=== PATIENT | female | born 1935 | race Caucasian/White ===

== ENCOUNTER 2020-12-11 21:07 | Observation (INO) | payer MEDICARE ==
[~2020-12-11] VITALS: Ht 154.9 cm; Wt 62.1 kg
[2020-12-11 21:29] LABS: URINE BLOOD NEGATIVE (Negative); URINE CLARITY CLEAR; URINE COLOR YELLOW; URINE GLUCOSE-RANDOM 2+ (Negative); URINE KETONES TRACE (Negative); URINE LEUKOCYTES-REFLEX NEGATIVE (Negative); URINE NITRITE-REFLEX NEGATIVE (Negative); URINE PROTEIN NEGATIVE (Negative); URINE SPECIFIC GRAVITY 1.015 (1.005-1.030); URINE UROBILINOGEN 0.2 E.U./dl (0.2-1.0)
[2020-12-11] MEDS ORDERED: LANTUS100 UNIT/M SUBQ (21:29)
[2020-12-11 21:30] LABS: URINE BILIRUBIN 1+ (Negative)
[2020-12-11 21:31] LABS: ICTOTEST (BILI CONFIRMATORY) Negative (Negative)
[2020-12-11 21:44] LABS: ABSOLUTE BASOPHILS 0.1 thou/uL (0.0-0.2); ABSOLUTE EOSINOPHILS 0.1 thou/uL (0.0-0.7); ABSOLUTE LYMPHOCYTES 0.9 thou/uL (0.8-5.3); ABSOLUTE MONOCYTES 0.5 thou/uL (0.0-1.2); ABSOLUTE NEUTROPHILS 6.3 thou/uL (1.6-8.1); BASOPHILS 1.5 %; EOSINOPHILS 1.5 %; HEMATOCRIT 40.4 % (37.0-47.0); HEMOGLOBIN 13.8 gm/dL (12.0-15.0); LYMPHOCYTES 11.1 %; MCH 30.5 pg (26.0-34.0); MCHC 34.3 g/dL (28.0-37.0); MCV 89.1 fL (80.0-100.0); MONOCYTES 5.8 %; MPV 7.2 fl. (7.2-11.1); NUCLEATED RBCS 0 /100WBC; PLATELET COUNT* 173 thou/uL (150-400); POLYS 80.1 %; RBC 4.54 mil/uL (4.20-5.00); RDW-CV 14.2 % (10.5-14.5); WBC 7.8 thou/uL (4.0-11.0)
[2020-12-11 21:55] LABS: CALCIUM 9.1 mg/dL (8.5-10.1); CREATININE 0.9 mg/dL (0.6-1.3); POTASSIUM 3.3 mmol/L (3.5-5.1)
[2020-12-11 22:05] LABS: ALBUMIN 4.2 g/dL (3.4-5.0); MAGNESIUM 1.7 mg/dL (1.8-2.4); TOTAL BILIRUBIN 0.7 mg/dL (<0.1-1.0); TOTAL PROTEIN 7.5 g/dL (6.4-8.2)
[2020-12-12 02:14] VITALS: BP 125/66
[2020-12-12 02:24] VITALS: BP 153/56
--- NOTE | 2020-12-12 02:24 | NUR ---
PT ADMITTED TO FLOOR PER WHEELCHAIR ACCOMPANIED BY ER STAFF WITH BELONGINGS. PT WALKS FROM CHAIR TO BED WITH SBA. DENIES DIZZINESS OR PAIN. STATES SHE JUST FEELS "WEAK" DENIES NAUSEA. LAC IVF PLACED ON PUMP FOR INFUSION. HISTORY OBTAINED AND ASSESSMENT PERFORMED, SEE ADMIT NOTES. TELE MONITOR ON. CALL LITE IN EASY REACH, BED ALARM ON FOR SAFETY.
[2020-12-12 04:00] VITALS: BP 133/55
[2020-12-12] MEDS ORDERED: ARICEPT10 M1 PO ×2 (04:27→04:28)
[2020-12-12] MEDS ORDERED: FAMOTIDINE 20 M20 MG PO (04:29)
[2020-12-12] MEDS ORDERED: PROTONIX40 M2 PO (04:30)
[2020-12-12] MEDS ORDERED: LEVOTHYROXINE25 MC1 PO (04:30)
[2020-12-12] MEDS ORDERED: MELOXICAM15 MG PO (04:31)
[2020-12-12] MEDS ORDERED: ETODOLAC 400 M400 M1 PO (04:32)
[2020-12-12] MEDS ORDERED: ASA81BEC PO (04:33)
[2020-12-12] MEDS ORDERED: MAGNESIUM500 MG PO (04:33)
[2020-12-12] MEDS ORDERED: MIRALAX119 GM PO (04:34)
[2020-12-12] MEDS ORDERED: TYLENOL325 M1 PO (04:35)
--- NOTE | 2020-12-12 05:39 | NUR ---
PT HAS SLEPT WITHOUT COMPLAINTS SINCE SETTLING IN AFTER ADMISSION. LAC IVF INFUSING PER PUMP. CALL LITE IN EASY REACH, BED ALARM ON FOR SAFETY. TELE SR.
[2020-12-12 08:00] VITALS: BP 136/77
--- NOTE | 2020-12-12 11:31 | NUR ---
DR. MATHEWS HERE TO SEE PATIENT AND TALK WITH DAUGHTER. HE WANTS PT TO SEE PATIENT AND SEE HOW SHE DOES. I WILL CALL AND REPORT TO HOW PATIENT DID WITH AMBULATING.
--- NOTE | 2020-12-12 11:52 | EKG ---
[place] [address] ELECTROCARDIOGRAM REPORT Name: LYNDSEY BOND Room: [address]#: [id number] Admission: 12/12/20 Attend Phys: Allan Ceja, Discharge: Date of : 39 Date of Service: 12/11/202117 Report #: [id number] THIS REPORT FOR: //name// [facility] ED Test Date: 2020-12-11 Test Time: 21:18:02 Pat Name: LYNDSEY BOND Department: Room: [facility] Gender: F Lightout Examiner: : 1935 Requested By: Mana Davis Order Number: [id number] MD: Efren Mike Measurements Intervals [place] Rate: 62 P: 32 [place]: 169 QRS: -52 QRSD: 100 T: 92 QT: 454 QTc: 461 Interpretive Statements Sinus rhythm Inferior infarct, 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
[2020-12-12 12:00] VITALS: BP 139/66
[2020-12-12 14:44] VITALS: BP 136/77
== END 2020-12-12 15:20 | disposition home or self-care (01) ==
LOC: M.ERS 21:07 → M.TBA-ER 12-12 01:54 → M.2W 12-12 02:29
PROVIDERS: Emergency Medicine; ADMIT Internal Medicine; ATTEND Internal Medicine
DX: R42 Dizziness and giddiness (principal); R53.1 Weakness; R41.3 Other amnesia; M19.90 Unspecified osteoarthritis, unspecified site; Z20.822 Contact with and (suspected) exposure to COVID-19; Z86.79 Personal history of other diseases of the circulatory system; R11.0 Nausea; E11.9 Type 2 diabetes mellitus without complications; Z90.710 Acquired absence of both cervix and uterus; Z79.01 Long term (current) use of anticoagulants; Z79.899 Other long term (current) drug therapy